=== PATIENT | female | born 1985 | race Caucasian/White ===

== ENCOUNTER 2018-10-02 05:43 | Emergency (ER) | payer OTHER ==
[2018-10-02 05:53] VITALS: BP 109/68
[2018-10-02 06:20] LABS: CLARITY,URINE SL. CLOUDY (CLEAR)
[2018-10-02 06:21] LABS: BILIRUBIN,URINE NEGATIVE (NEGATIVE); ICTOTEST,URINE NEGATIVE
[2018-10-02 06:22] LABS: SQUAMOUS EPITHELIAL CELL,UR FEW Squamous (<= Few)
[2018-10-02 06:23] LABS: BACTERIA,URINE Rare /HPF (None Seen)
--- NOTE | 2018-10-02 06:37 | ED Physician Documentation ---
PD HPI FEMALE - Stated complaint Stated Complaint: FEMALE - Chief complaint Chief Complaint: Abd Pain - History obtained from History obtained from: Patient - History of Present Illness Timing - onset: How many days ago (2) Timing - details: Gradual onset Associated symptoms: Dysuria, Urinary frequency. 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 - Past Surgical History Past Surgical History: No - Present Medications Home Medications: Ambulatory Orders Medication Instructions Recorded Confirmed Nitrofurantoin Monohyd/M-Cryst 100 mg PO BID #10 capsule 10/02/18 [Macrobid 100 mg Capsule] - Allergies Allergies/Adverse Reactions: Allergies Allergy/AdvReac Type Severity Reaction Status Date / Time No Known Drug Allergies Allergy Verified 10/02/18 05:52 - Social History Does the pt smoke?: No Smoking Status: Never smoker Does the pt drink ETOH?: Yes Does the pt have substance abuse?: No - Immunizations Immunizations are current?: Yes - POLST Patient has POLST: No PD ED PE NORMAL - Vitals Vital signs reviewed: Yes - General General: Alert and oriented X 3, No acute distress, Well developed/nourished - Abdomen Abdomen: Soft, Non tender - Back Back: No CVA TTP Results - Vitals Vitals: Vital Signs - 24 hr 10/02/18 05:51 Temperature 36.8 C Heart Rate 72 Respiratory 16 Rate Blood Pressure 109/68 O2 Saturation 100 Oxygen O2 Source Room air - Labs Labs: Laboratory Tests 10/02/18 05:40 Urine Color RED/BLOODY Urine Clarity SL. CLOUDY Urine pH 5.0 Ur Specific [place] 1.025 Urine Protein Urine Glucose (UA) Urine Ketones Urine Occult Blood Urine Nitrite Urine Bilirubin NEGATIVE Urine Urobilinogen Ur Leukocyte Esterase Urine RBC 6-10 H Urine WBC >25 H Ur Squamous Epith Cells FEW Squamous Urine Bacteria Rare Ur Microscopic Review INDICATED Urine Culture Comments INDICATED PD MEDICAL DECISION MAKING - ED course Complexity details: reviewed results, considered differential, d/w patient Departure - Departure Disposition: 01 Home, Self Care Clinical Impression: Urinary tract infection Qualifiers: Urinary tract infection type: acute cystitis Hematuria presence: without hematuria Qualified Code(s): N30.00 - Acute cystitis without hematuria Condition: Good Instructions: ED UTI Cystitis Female Follow-Up: MILADYS DICKINSON MD [Primary Care Provider] - Prescriptions: Nitrofurantoin Monohyd/M-Cryst [Macrobid 100 mg Capsule] 100 mg PO BID #10 capsule Discharge Date/Time: 10/02/18 07:15
[2018-10-02] MEDS ORDERED: NITROFURANTOIN MACRO 100 MG CAPSULE PO STA (07:00)
== END 2018-10-02 07:15 | disposition home or self-care (01) ==
LOC: ED 05:43
DX: N30.00 Acute cystitis without hematuria (principal); Z87.440 Personal history of urinary (tract) infections
CPT/HCPCS: 81001; 87086; 87181; 99283; A9270; 81003

== ENCOUNTER 2020-12-01 14:01 | Emergency (ER) | payer OTHER ==
[2020-12-01 14:10] VITALS: BP 105/60
--- NOTE | 2020-12-01 14:28 | ED Physician Documentation ---
PD HPI FEMALE - Stated complaint Stated Complaint: FEMALE - Chief complaint Chief Complaint: UTI - History obtained from History obtained from: Patient - History of Present Illness Timing - onset: Last night Timing - duration: Hours Timing - details: Gradual onset, Still present Associated symptoms: Dysuria, Urinary frequency Contributing factors: No: Similar symptoms before: Diagnosis (UTI) Recently seen: Not recently seen - Additional information Additional information: Previously well 35-year-old female with a prior history of urinary tract infection has developed symptoms of same beginning last night. She has developed some urinary urgency frequency dysuria and foul-smelling urine. She did take some Azo last night and comes into the emergency department this morning for evaluation. She denies any fever she has had some slight nausea this morning this is now resolved. She has had urinary tract infection 1-2 times per year over the last 3 years. Review of Systems Constitutional: denies: Fever, Chills, Myalgias, Fatigue Nose: denies: Congestion Respiratory: denies: Dyspnea, Cough GI: reports: Nausea. 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 : None HEENT: None Psych: None Musculoskeletal: Other Derm: None - Past Surgical History Past Surgical History: No - Present Medications Home Medications: Ambulatory Orders Medication Instructions Recorded Confirmed Dextroamphetamine/Amphetamine 05/08/19 [Adderall Xr 15 mg Capsule] Nitrofurantoin Monohyd/M-Cryst 100 mg PO BID #10 capsule 05/08/19 [Macrobid 100 mg Capsule] Phenazopyridine HCl [Pyridium] 200 mg PO TID PRN #6 tablet 05/08/19 Sulfamethox/Trimeth 800/160 1 each PO BID #10 tab 12/01/20 [Bactrim Ds] - Allergies Allergies/Adverse Reactions: Allergies Allergy/AdvReac Type Severity Reaction Status Date / Time No Known Drug Allergies Allergy Verified 12/01/20 14:06 - Social History Does the pt smoke?: No Smoking Status: Never smoker Does the pt drink ETOH?: No Does the pt have substance abuse?: No - Immunizations Immunizations are current?: Yes - POLST Patient has POLST: No PD ED PE NORMAL - Vitals Vital signs reviewed: Yes (normal ) - General General: Alert and oriented X 3, No acute distress, Well developed/nourished - HEENT HEENT: Atraumatic, PERRL, EOMI - Respiratory Respiratory: No respiratory distress - Back Back: No CVA TTP, No spinal TTP - Derm Derm: Normal color, Warm and dry, No rash - Extremities Extremities: No deformity, No edema - Neuro Neuro: Alert and oriented X 3, chemical pathologist 2-12 intact, No motor deficit, No sensory deficit, Normal speech Eye Opening: Spontaneous Motor: Obeys Commands Verbal: Oriented GCS Score: 15 - Psych Psych: Normal mood, Normal affect Results - Vitals Vitals: Vital Signs - 24 hr 12/01/20 14:06 Temperature 36.7 C Heart Rate 83 Respiratory 16 Rate Blood Pressure 105/60 O2 Saturation 100 Oxygen O2 Source Room air - Labs Labs: Laboratory Tests 12/01/20 14:20 Urine Color YELLOW Urine Clarity CLEAR Urine pH 6.0 Ur Specific [place] 1.010 Urine Protein NEGATIVE Urine Glucose (UA) NEGATIVE Urine Ketones NEGATIVE Urine Occult Blood SMALL H Urine Nitrite NEGATIVE Urine Bilirubin NEGATIVE Urine Urobilinogen 0.2 (NORMAL) Ur Leukocyte Esterase TRACE H Urine RBC 0-5 Urine WBC 11-25 H Ur Squamous Epith Cells FEW Squamous Urine Bacteria Rare Ur Microscopic Review INDICATED Urine Culture Comments INDICATED Urine HCG, Qual NEGATIVE PD MEDICAL DECISION MAKING - ED course Complexity details: reviewed results, re-evaluated patient, considered differential, d/w patient ED course: young woman is symptomatic with UTI and treatment is offered. Departure - Departure Disposition: 01 Home, Self Care Clinical Impression: Urinary tract infection Qualifiers: Urinary tract infection type: acute cystitis Hematuria presence: without hematuria Qualified Code(s): N30.00 - Acute cystitis without hematuria Instructions: ED UTI Cystitis Female [facility]-Up: [facility] [Provider Group] Prescriptions: Sulfamethox/Trimeth 800/160 [Bactrim Ds] 1 each PO BID #10 tab Discharge Date/Time: 12/01/20 15:01
[2020-12-01 14:33] LABS: BILIRUBIN,URINE NEGATIVE (NEGATIVE); GLUCOSE, URINE (UA) NEGATIVE (NEGATIVE); KETONES,URINE (UA) NEGATIVE (NEGATIVE); LEUKOCYTE ESTERASE, URINE TRACE (NEGATIVE); NITRITE,URINE NEGATIVE (NEGATIVE); OCCULT BLOOD,URINE SMALL (NEGATIVE); PROTEIN,URINE NEGATIVE (NEGATIVE); UROBILINOGEN,URINE 0.2 (NORMAL) E.U./dL (NORMAL)
[2020-12-01 14:35] LABS: CLARITY,URINE CLEAR (CLEAR); HCG UR QUAL NEGATIVE
[2020-12-01 14:52] LABS: BACTERIA,URINE Rare /HPF (None Seen); RBC,URINE 0-5 /HPF (0-5); SQUAMOUS EPITHELIAL CELL,UR FEW Squamous (<= Few)
== END 2020-12-01 15:01 | disposition home or self-care (01) ==
LOC: ED 14:01
DX: N30.00 Acute cystitis without hematuria (principal)
CPT/HCPCS: 81001; 81003; 81025; 87086; 99283; 99284

== ENCOUNTER 2021-11-08 17:22 | Emergency (ER) | payer OTHER ==
[2021-11-08 17:45] VITALS: BP 119/76
[2021-11-08 18:03] LABS: BILIRUBIN,URINE NEGATIVE (NEGATIVE); GLUCOSE, URINE (UA) NEGATIVE (NEGATIVE); KETONES,URINE (UA) TRACE mg/dL (NEGATIVE); LEUKOCYTE ESTERASE, URINE TRACE (NEGATIVE); NITRITE,URINE NEGATIVE (NEGATIVE); OCCULT BLOOD,URINE NEGATIVE (NEGATIVE); PH,URINE 5.5 PH (5.0-7.5); PROTEIN,URINE NEGATIVE (NEGATIVE); UROBILINOGEN,URINE 0.2 (NORMAL) E.U./dL (NORMAL)
[2021-11-08 18:20] LABS: BACTERIA,URINE Moderate /HPF (None Seen); CLARITY,URINE CLEAR (CLEAR); HCG UR QUAL NEGATIVE; RBC,URINE 0-5 /HPF (0-5); SQUAMOUS EPITHELIAL CELL,UR FEW Squamous (<= Few)
[2021-11-08] MEDS ORDERED: NITROFURANTOIN MACRO 100 MG CAPSULE PO STA (18:24)
--- NOTE | 2021-11-08 18:25 | ED Physician Documentation ---
PD HPI FEMALE - Stated complaint Stated Complaint: FEMALE - Chief complaint Chief Complaint: UTI - History obtained from History obtained from: Patient (hAS ABOUT 3 utiS/YR. 3 days of urinary frequency and dysuria without flank pain, fevers, or nausea.) Review of Systems Constitutional: denies: Fever, Chills : reports: Dysuria, Frequency. 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 : None HEENT: None Psych: None Musculoskeletal: Other Derm: None - Past Surgical History Past Surgical History: No - Present Medications Home Medications: Ambulatory Orders Medication Instructions Recorded Confirmed Dextroamphetamine/Amphetamine 05/08/19 [Adderall Xr 15 mg Capsule] Nitrofurantoin Monohyd/M-Cryst 100 mg PO BID #10 capsule 05/08/19 [Macrobid 100 mg Capsule] Phenazopyridine HCl [Pyridium] 200 mg PO TID PRN #6 tablet 05/08/19 Sulfamethox/Trimeth 800/160 1 each PO BID #10 tab 12/01/20 [Bactrim Ds] Nitrofurantoin [Macrobid] 1 cap PO BID #10 cap 11/08/21 - Allergies Allergies/Adverse Reactions: Allergies Allergy/AdvReac Type Severity Reaction Status Date / Time No Known Drug Allergies Allergy Verified 11/08/21 17:47 - Social History Does the pt smoke?: No Smoking Status: Never smoker Does the pt drink ETOH?: No Does the pt have substance abuse?: No - Immunizations Immunizations are current?: Yes - POLST Patient has POLST: No PD ED PE NORMAL - Vitals Vital signs reviewed: Yes - General General: Alert and oriented X 3, No acute distress - Abdomen Abdomen: Normal bowel sounds, Soft, Non tender - Back Back: No CVA TTP - Neuro Neuro: Alert and oriented X 3, Normal speech Results - Vitals Vitals: Vital Signs - 24 hr 11/08/21 17:43 Temperature 36.4 C L Heart Rate 92 Respiratory 16 Rate Blood Pressure 119/76 O2 Saturation 100 Oxygen O2 Source Room air - Labs Labs: Laboratory Tests 11/08/21 11/08/21 17:55 17:55 Urine Color LIGHT YELLOW Urine Clarity CLEAR Urine pH 5.5 Ur Specific [place] 1.010 Urine Protein NEGATIVE Urine Glucose (UA) NEGATIVE Urine Ketones TRACE Urine Occult Blood NEGATIVE Urine Nitrite NEGATIVE Urine Bilirubin NEGATIVE Urine Urobilinogen 0.2 (NORMAL) Ur Leukocyte Esterase TRACE H Urine RBC 0-5 Urine WBC 6-10 H Ur Squamous Epith Cells FEW Squamous Urine Bacteria Moderate H Ur Microscopic Review INDICATED Urine Culture Comments INDICATED Urine HCG, Qual NEGATIVE Departure - Departure Disposition: Home, Self Care Clinical Impression: Cystitis Condition: Good Record reviewed to determine appropriate education?: Yes Instructions: ED UTI Cystitis Female Prescriptions: Nitrofurantoin [Macrobid] 1 cap PO BID #10 cap Comments: I sent your prescription to [facility] in [place]. We will culture your urine, the results should be done in 48-72 hours. If an antibiotic change is necessary we will call you. Return if worse in the meantime, especially if you develop increasing flank pain, fevers, or cannot keep down the medication.
== END 2021-11-08 18:28 | disposition home or self-care (01) ==
LOC: ED 17:22
DX: N30.90 Cystitis, unspecified without hematuria (principal)
CPT/HCPCS: 81001; 81025; 87086; 87181; 99282; 99283; A9270; 81003

== ENCOUNTER 2021-11-17 10:30 | Emergency (ER) | payer OTHER ==
[2021-11-17 10:42] VITALS: BP 108/74
[2021-11-17 11:08] LABS: BILIRUBIN,URINE NEGATIVE (NEGATIVE); GLUCOSE, URINE (UA) NEGATIVE (NEGATIVE); KETONES,URINE (UA) NEGATIVE (NEGATIVE); LEUKOCYTE ESTERASE, URINE LARGE (NEGATIVE); NITRITE,URINE NEGATIVE (NEGATIVE); OCCULT BLOOD,URINE LARGE (NEGATIVE); PH,URINE 5.5 PH (5.0-7.5); PROTEIN,URINE 30 mg/dL (NEGATIVE); UROBILINOGEN,URINE 0.2 (NORMAL) E.U./dL (NORMAL)
[2021-11-17 11:09] LABS: CLARITY,URINE HAZY (CLEAR)
[2021-11-17 11:12] LABS: HCG UR QUAL NEGATIVE
[2021-11-17 11:29] LABS: RBC,URINE TNTC /HPF (0-5); SQUAMOUS EPITHELIAL CELL,UR FEW Squamous (<= Few); WBC,URINE >25 /HPF (0-5)
[2021-11-17 11:30] LABS: BACTERIA,URINE Few /HPF (None Seen)
[2021-11-17] MEDS ORDERED: SULFAMETH/TRIMETH DS 800/160 MG TABLET PO STA (11:35)
--- NOTE | 2021-11-17 11:35 | ED Physician Documentation ---
History of Present Illness - Stated complaint Stated Complaint: FEMALE - Chief complaint Chief Complaint: UTI - History obtained from History obtained from: Patient - Additonal information Additional information: Patient comes emergency department chief complaint of recurrence of dysuria and urinary frequency after being treated for urinary tract infection a couple of weeks ago. Patient states that during that course of antibiotics, she missed 1 dose of her antibiotics but took all the rest. She is not sure how long she was on the antibiotics but she thinks it was 3 to 5 days. Patient denies any fevers or chills. No back pain. She states her symptoms began to recur yesterday. No other complaints at this time. Review of Systems Ten Systems: 10 systems reviewed and negative Constitutional: reports: Reviewed and negative Eyes: reports: Reviewed and negative Ears: reports: Reviewed and negative Nose: reports: Reviewed and negative Throat: reports: Reviewed and negative Cardiac: reports: Reviewed and negative Respiratory: reports: Reviewed and negative GI: reports: Reviewed and negative : reports: Dysuria, Frequency Skin: reports: Reviewed and negative Musculoskeletal: reports: Reviewed and negative Neurologic: reports: Reviewed and negative Psychiatric: reports: Reviewed and negative Endocrine: reports: Reviewed and negative Immunocompromised: reports: Reviewed and negative PD PAST MEDICAL HISTORY - Past Medical History Past Medical History: Yes Cardiovascular: None Respiratory: None Neuro: None Endocrine/Autoimmune: None GI: None 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 : None HEENT: None Psych: None Musculoskeletal: Other Derm: None - Past Surgical History Past Surgical History: No - Present Medications Home Medications: Ambulatory Orders Medication Instructions Recorded Confirmed Dextroamphetamine/Amphetamine 05/08/19 [Adderall Xr 15 mg Capsule] Nitrofurantoin Monohyd/M-Cryst 100 mg PO BID #10 capsule 05/08/19 [Macrobid 100 mg Capsule] Phenazopyridine HCl [Pyridium] 200 mg PO TID PRN #6 tablet 05/08/19 Sulfamethox/Trimeth 800/160 1 each PO BID #10 tab 12/01/20 [Bactrim Ds] Nitrofurantoin [Macrobid] 1 cap PO BID #10 cap 11/08/21 Sulfamethox/Trimeth 800/160 1 each PO BID #14 tablet 11/17/21 [Bactrim Ds 800/160] - Allergies Allergies/Adverse Reactions: Allergies Allergy/AdvReac Type Severity Reaction Status Date / Time No Known Drug Allergies Allergy Verified 11/17/21 10:42 - Social History Does the pt smoke?: No Smoking Status: Never smoker Does the pt drink ETOH?: No Does the pt have substance abuse?: No - Immunizations Immunizations are current?: Yes - POLST Patient has POLST: No PD ED PE NORMAL - Vitals Vital signs reviewed: Yes - General General: Alert and oriented X 3, No acute distress, Well developed/nourished - HEENT HEENT: Atraumatic, PERRL, EOMI, Moist mucous membranes - Neck Neck: Supple, no meningeal sign - Cardiac Cardiac: RRR, No murmur, Strong equal pulses - Respiratory Respiratory: No respiratory distress, Clear bilaterally - Abdomen Abdomen: Soft, Non tender, Non distended - Back Back: No CVA TTP - Derm Derm: Normal color, Warm and dry, No rash - Extremities Extremities: No deformity, No edema - Neuro Neuro: Alert and oriented X 3 - Psych Psych: Normal mood, Normal affect Results - Vitals Vitals: Vital Signs - 24 hr 11/17/21 10:35 Temperature 36.6 C Heart Rate 96 Respiratory 15 Rate Blood Pressure 108/74 O2 Saturation 99 Oxygen O2 Source Room air - Labs Labs: Laboratory Tests 11/17/21 11:00 Urine Color YELLOW Urine Clarity HAZY Urine pH 5.5 Ur Specific [place] 1.025 Urine Protein 30 H Urine Glucose (UA) NEGATIVE Urine Ketones NEGATIVE Urine Occult Blood LARGE H Urine Nitrite NEGATIVE Urine Bilirubin NEGATIVE Urine Urobilinogen 0.2 (NORMAL) Ur Leukocyte Esterase LARGE H Urine RBC TNTC H Urine WBC >25 H Ur Squamous Epith Cells FEW Squamous Urine Bacteria Few Ur Microscopic Review INDICATED Urine Culture Comments INDICATED Urine HCG, Qual NEGATIVE PD MEDICAL DECISION MAKING - ED course Complexity details: reviewed results, re-evaluated patient, considered differential, d/w patient ED course: The patient's urinalysis was positive for infection. She was started on antibiotics here in the emergency department. I will put her on a weeklong course this time, and we have discussed that patient can speak with her primary doctor about following up with urology regarding her recurrent UTIs. We have discussed the usual indications for return. Departure - Departure Disposition: 01 Home, Self Care Clinical Impression: Urinary tract infection Qualifiers: Urinary tract infection type: acute cystitis Hematuria presence: with hematuria Qualified Code(s): N30.01 - Acute cystitis with hematuria Condition: Stable Instructions: ED UTI Cystitis Female Prescriptions: Sulfamethox/Trimeth 800/160 [Bactrim Ds 800/160] 1 each PO BID #14 tablet Comments: Your prescription has been electronically transmitted to [facility] pharmacy in [place]. Please take all of your antibiotics as directed until gone. Please speak with your primary doctor about whether you should have a referral to urology for your recurrent urinary tract infections.
== END 2021-11-17 12:30 | disposition home or self-care (01) ==
LOC: ED 10:30
DX: N30.01 Acute cystitis with hematuria (principal)
CPT/HCPCS: 81001; 81025; 87086; 99283; A9270; 81003

== ENCOUNTER 2022-03-31 11:47 | Emergency (ER) | payer OTHER ==
[2022-03-31 12:06] VITALS: BP 104/72
[2022-03-31 12:24] LABS: BILIRUBIN,URINE NEGATIVE (NEGATIVE); GLUCOSE, URINE (UA) NEGATIVE (NEGATIVE); KETONES,URINE (UA) NEGATIVE (NEGATIVE); LEUKOCYTE ESTERASE, URINE LARGE (NEGATIVE); NITRITE,URINE NEGATIVE (NEGATIVE); OCCULT BLOOD,URINE SMALL (NEGATIVE); PROTEIN,URINE NEGATIVE (NEGATIVE); UROBILINOGEN,URINE 0.2 (NORMAL) E.U./dL (NORMAL)
[2022-03-31 12:25] LABS: CLARITY,URINE SL. CLOUDY (CLEAR); HCG UR QUAL NEGATIVE
--- NOTE | 2022-03-31 12:38 | ED Physician Documentation ---
PD HPI FEMALE - Stated complaint Stated Complaint: UTI - Chief complaint Chief Complaint: UTI - History obtained from History obtained from: Patient - History of Present Illness Timing - onset: How many days ago (2) Timing - duration: Days (2) Timing - details: Gradual onset Pain level max: 0 Pain level max: 0 Associated symptoms: Dysuria, Urinary frequency. 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 : None HEENT: None Psych: None Musculoskeletal: Other Derm: None - Past Surgical History Past Surgical History: No - Present Medications Home Medications: Ambulatory Orders Medication Instructions Recorded Confirmed Dextroamphetamine/Amphetamine 15 mg PO DAILY 05/08/19 03/31/22 [Adderall Xr 15 mg Capsule] Nitrofurantoin [Macrobid] 100 mg PO BID #10 cap 03/31/22 Phenazopyridine HCl [Pyridium] 200 mg PO TID PRN #6 tablet 03/31/22 - Allergies Allergies/Adverse Reactions: Allergies Allergy/AdvReac Type Severity Reaction Status Date / Time No Known Drug Allergies Allergy Verified 03/31/22 12:06 - Social History Does the pt smoke?: No Smoking Status: Never smoker Does the pt drink ETOH?: No Does the pt have substance abuse?: No - Immunizations Immunizations are current?: Yes - POLST Patient has POLST: No PD ED PE NORMAL - Vitals Vital signs reviewed: Yes - General General: Alert and oriented X 3, No acute distress - HEENT HEENT: Moist mucous membranes - Neck Neck: Supple, no meningeal sign - Cardiac Cardiac: RRR - Respiratory Respiratory: No respiratory distress, Clear bilaterally - Abdomen Abdomen: Soft, Non tender, Non distended - Back Back: No CVA TTP - Derm Derm: Warm and dry - Neuro Neuro: Alert and oriented X 3 - Psych Psych: Normal mood, Normal affect Results - Vitals Vitals: Vital Signs - 24 hr 03/31/22 12:03 Temperature 36.6 C Heart Rate 88 Respiratory 18 Rate Blood Pressure 104/72 O2 Saturation 99 Oxygen O2 Source Room air - Labs Labs: Laboratory Tests 03/31/22 12:10 Urine Color YELLOW Urine Clarity SL. CLOUDY Urine pH 6.0 Ur Specific [place] 1.010 Urine Protein NEGATIVE Urine Glucose (UA) NEGATIVE Urine Ketones NEGATIVE Urine Occult Blood SMALL H Urine Nitrite NEGATIVE Urine Bilirubin NEGATIVE Urine Urobilinogen 0.2 (NORMAL) Ur Leukocyte Esterase LARGE H Urine RBC 0-5 Urine WBC >25 H Urine WBC Clumps PRESENT Ur Squamous Epith Cells FEW Squamous Urine Bacteria Few Ur Microscopic Review INDICATED Urine Culture Comments INDICATED Urine HCG, Qual NEGATIVE PD MEDICAL DECISION MAKING - ED course Complexity details: reviewed results, considered differential, d/w patient ED course: Patient with a UTI. Will place on antibiotics for home. We will have her follow-up with her doctor for further care. No evidence of pyelonephritis. No evidence of sepsis. Patient counseled regarding signs and symptoms for which I believe and urgent re-evaluation would be necessary. Patient with good unde rstanding of and agreement to plan and is comfortable going home at this time This document was made in part using voice recognition software. While efforts are made to proofread this document, sound alike and grammatical errors may occur. Departure - Departure Disposition: 01 Home, Self Care Clinical Impression: Urinary tract infection Qualifiers: Urinary tract infection type: acute cystitis Hematuria presence: without hematuria Qualified Code(s): N30.00 - Acute cystitis without hematuria Condition: Good Instructions: ED UTI Cystitis Female Follow-Up: JACKELINE DUKE MD [Primary Care Provider] - As Needed Prescriptions: Nitrofurantoin [Macrobid] 100 mg PO BID #10 cap Phenazopyridine HCl [Pyridium] 200 mg PO TID PRN #6 tablet PRN Reason: dysuria Comments: Please follow-up with your doctor as needed for further care. Your prescriptions were sent to the [facility] pharmacy. Take all antibiotics until gone even if you are feeling better. Return if you worsen. Discharge Date/Time: 03/31/22 12:41
[2022-03-31 12:39] LABS: RBC,URINE 0-5 /HPF (0-5); WBC CLUMPS,URINE PRESENT; WBC,URINE >25 /HPF (0-5)
[2022-03-31 12:40] LABS: BACTERIA,URINE Few /HPF (None Seen); SQUAMOUS EPITHELIAL CELL,UR FEW Squamous (<= Few)
== END 2022-03-31 12:41 | disposition home or self-care (01) ==
LOC: ED 11:47
DX: N30.00 Acute cystitis without hematuria (principal)
CPT/HCPCS: 81001; 81003; 81025; 87077; 87086; 87181; 99283

== ENCOUNTER 2022-07-17 04:41 | Emergency (ER) | payer OTHER ==
[2022-07-17 05:06] LABS: BILIRUBIN,URINE NEGATIVE (NEGATIVE); GLUCOSE, URINE (UA) NEGATIVE (NEGATIVE); KETONES,URINE (UA) NEGATIVE (NEGATIVE); LEUKOCYTE ESTERASE, URINE LARGE (NEGATIVE); NITRITE,URINE NEGATIVE (NEGATIVE); OCCULT BLOOD,URINE SMALL (NEGATIVE); PROTEIN,URINE NEGATIVE (NEGATIVE); UROBILINOGEN,URINE 0.2 (NORMAL) E.U./dL (NORMAL)
[2022-07-17 05:10] LABS: CLARITY,URINE SL. CLOUDY (CLEAR); HCG UR QUAL NEGATIVE
[2022-07-17 05:14] LABS: BACTERIA,URINE Few /HPF (None Seen); RBC,URINE 0-5 /HPF (0-5); SQUAMOUS EPITHELIAL CELL,UR RARE Squamous (<= Few); WBC,URINE >25 /HPF (0-5)
--- NOTE | 2022-07-17 05:22 | ED Physician Documentation ---
PD HPI FEMALE - Stated complaint Stated Complaint: FEM - Chief complaint Chief Complaint: Abd Pain - History obtained from History obtained from: Patient - History of Present Illness Timing - onset: Last night Timing - details: Abrupt onset Pain level max: 3 (when urinating) Pain level max: 0 Associated symptoms: Dysuria, Urinary frequency. No: Fever, Hematuria Contributing factors: No: Similar symptoms before: Diagnosis (UTI) Recently seen: Not recently seen - Additional information Additional information: c/o burning dysuria, urinary frequency since last night. She says this is similar to previous (frequent) urinary tract infections she has had. 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 : Chronic bladder infection HEENT: None Psych: None Musculoskeletal: Other Derm: None - Past Surgical History Past Surgical History: No - Present Medications Home Medications: Ambulatory Orders Medication Instructions Recorded Confirmed Phenazopyridine [Pyridium] 200 mg PO TID 2 Days #12 tablet 07/17/22 Sulfamethox/Trimeth 800/160 1 each PO BID #10 tablet 07/17/22 [Bactrim Ds 800/160] - Allergies Allergies/Adverse Reactions: Allergies Allergy/AdvReac Type Severity Reaction Status Date / Time No Known Drug Allergies Allergy Verified 07/17/22 05:04 - Social History Does the pt smoke?: No Smoking Status: Never smoker Does the pt drink ETOH?: No Does the pt have substance abuse?: No - Immunizations Immunizations are current?: Yes - POLST Patient has POLST: No PD ED PE NORMAL - Vitals Vital signs reviewed: Yes - General General: Alert and oriented X 3, No acute distress, Well developed/nourished - Abdomen Abdomen: Soft, Non tender - Back Back: No CVA TTP Results - Vitals Vitals: Vital Signs - 24 hr 07/17/22 07/17/22 04:57 05:43 Temperature 36.4 C L 36.5 C Heart Rate 65 61 Respiratory 16 16 Rate Blood Pressure 106/64 110/65 O2 Saturation 100 99 Oxygen O2 Source Room air - Labs Labs: Laboratory Tests 07/17/22 07/17/22 04:45 04:45 Urine Color YELLOW Urine Clarity SL. CLOUDY Urine pH 6.0 Ur Specific [place] 1.020 Urine Protein NEGATIVE Urine Glucose (UA) NEGATIVE Urine Ketones NEGATIVE Urine Occult Blood SMALL H Urine Nitrite NEGATIVE Urine Bilirubin NEGATIVE Urine Urobilinogen 0.2 (NORMAL) Ur Leukocyte Esterase LARGE H Urine RBC 0-5 Urine WBC >25 H Ur Squamous Epith Cells RARE Squamous Urine Bacteria Few Ur Microscopic Review INDICATED Urine Culture Comments INDICATED Urine HCG, Qual NEGATIVE PD MEDICAL DECISION MAKING - ED course Complexity details: reviewed old records, reviewed results, considered differential, d/w patient ED course: Symptoms c/w UTI and UA result also strongly c/w UTI with >25 WBC/hpf. Urine HCG negative. She says the last time she had a UTI, the antibiotic prescribed was changed due to resistance and I do note that in March her urine culture was positive for klebsiella pneumonia resistant to macrobid and ampicillin but sensitive to all other antibiotics tested against. I do not see any information regarding what the antibiotic was changed to, but based on this previous culture, will rx bactrim and provide pyridium as well. Departure - Departure Disposition: 01 Home, Self Care Clinical Impression: Urinary tract infection Qualifiers: Urinary tract infection type: acute cystitis Hematuria presence: without hematuria Qualified Code(s): N30.00 - Acute cystitis without hematuria Condition: Good Instructions: ED UTI Cystitis Female Prescriptions: Sulfamethox/Trimeth 800/160 [Bactrim Ds 800/160] 1 each PO BID #10 tablet Phenazopyridine [Pyridium] 200 mg PO TID 2 Days #12 tablet Comments: Prescriptions for bactrim (sulfa/trimethoprim, antibiotic) and pyridium (helps with most UTI symptoms) have been electronically submitted to the [facility] in [place].
[2022-07-17] MEDS ORDERED: SULFAMETH/TRIMETH DS 800/160 MG TABLET PO STA (05:34)
[2022-07-17] MEDS ORDERED: PHENAZOPYRIDINE 100 MG TABLET PO STA (05:34)
[2022-07-17 05:45] VITALS: BP 110/65
== END 2022-07-17 05:43 | disposition home or self-care (01) ==
LOC: ED 04:41
DX: N30.00 Acute cystitis without hematuria (principal)
CPT/HCPCS: 81001; 81025; 87086; 87181; 99282; 99283; A9270; 81003

== ENCOUNTER 2023-01-08 18:05 | Emergency (ER) | payer OTHER ==
[2023-01-08 18:11] VITALS: BP 116/68
[2023-01-08 18:24] LABS: BILIRUBIN,URINE NEGATIVE (NEGATIVE); GLUCOSE, URINE (UA) NEGATIVE (NEGATIVE); KETONES,URINE (UA) NEGATIVE (NEGATIVE); LEUKOCYTE ESTERASE, URINE SMALL (NEGATIVE); NITRITE,URINE NEGATIVE (NEGATIVE); OCCULT BLOOD,URINE TRACE-INTA (NEGATIVE); PROTEIN,URINE NEGATIVE (NEGATIVE); UROBILINOGEN,URINE 0.2 (NORMAL) E.U./dL (NORMAL)
[2023-01-08 18:25] LABS: HCG UR QUAL NEGATIVE
[2023-01-08 18:26] LABS: CLARITY,URINE HAZY (CLEAR)
[2023-01-08 18:30] LABS: BACTERIA,URINE Rare /HPF (None Seen); EPITHELIAL CELLS,UR RARE Transitional /HPF (<= Few); RBC,URINE 0-5 /HPF (0-5); SQUAMOUS EPITHELIAL CELL,UR RARE Squamous (<= Few); WBC,URINE >25 /HPF (0-5)
--- NOTE | 2023-01-08 18:49 | ED Physician Documentation ---
PD HPI FEMALE - Stated complaint Stated Complaint: FEMALE - Chief complaint Chief Complaint: UTI - History obtained from History obtained from: Patient - Additional information Additional information: 37-year-old female with a history of Frequent UTIs presents with dysuria since this morning. She has mild headache, no fever or chills, no back or flank pain, no nausea vomiting diarrhea, no vaginal discharge. No concern for STI. Feels similar to her prior UTIs per patient Review of Systems Constitutional: reports: Reviewed and negative Cardiac: reports: Reviewed and negative Respiratory: reports: Reviewed and negative GI: reports: Reviewed and negative : reports: Dysuria. 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 : Chronic bladder infection HEENT: None Psych: None Musculoskeletal: Other Derm: None - Past Surgical History Past Surgical History: No - Present Medications Home Medications: Ambulatory Orders Medication Instructions Recorded Confirmed Phenazopyridine [Pyridium] 200 mg PO TID 2 Days #12 tablet 07/17/22 Sulfamethox/Trimeth 800/160 1 each PO BID #10 tablet 07/17/22 [Bactrim Ds 800/160] Phenazopyridine HCl [Pyridium] 200 mg PO TID PRN #6 tablet 01/08/23 cephALEXin [Keflex] 500 mg PO Q6H #14 cap 01/08/23 - Allergies Allergies/Adverse Reactions: Allergies Allergy/AdvReac Type Severity Reaction Status Date / Time No Known Drug Allergies Allergy Verified 01/08/23 18:08 - Social History Does the pt smoke?: No Smoking Status: Never smoker Does the pt drink ETOH?: No Does the pt have substance abuse?: No - Immunizations Immunizations are current?: Yes - POLST Patient has POLST: No PD ED PE NORMAL - Vitals Vital signs reviewed: Yes - General General: Alert and oriented X 3, No acute distress, Well developed/nourished - Respiratory Respiratory: No respiratory distress, Clear bilaterally - Abdomen Abdomen: Normal bowel sounds, Soft, Non tender, Non distended - Back Back: No CVA TTP - Derm Derm: Normal color, Warm and dry Results - Vitals Vitals: Vital Signs - 24 hr 01/08/23 18:08 Temperature 36.5 C Heart Rate 85 Respiratory 16 Rate Blood Pressure 116/68 O2 Saturation 100 Oxygen O2 Source Room air - Labs Labs: Laboratory Tests 01/08/23 18:16 Urine Color YELLOW Urine Clarity HAZY Urine pH 6.0 Ur Specific [place] 1.025 Urine Protein NEGATIVE Urine Glucose (UA) NEGATIVE Urine Ketones NEGATIVE Urine Occult Blood TRACE-INTA Urine Nitrite NEGATIVE Urine Bilirubin NEGATIVE Urine Urobilinogen 0.2 (NORMAL) Ur Leukocyte Esterase SMALL H Urine RBC 0-5 Urine WBC >25 H Ur Epithelial Cells RARE Transitional Ur Squamous Epith Cells RARE Squamous Urine Bacteria Rare Ur Microscopic Review INDICATED Urine Culture Comments INDICATED Urine HCG, Qual NEGATIVE PD Medical Decision Making - ED course Complexity details: considered differential, d/w patient ED course: 37-year-old female presents with dysuria since this morning. She has a history of frequent UTIs and this feels similar to her. She is nontoxic-appearing stable vital signs, no signs of pyonephritis on physical exam. Her urinalysis is suggestive of infection therefore I will treat with Keflex twice a day for 5 days. The patient was also given Pyridium, advised to drink plenty of fluids, take Tylenol as needed for pain. Return precautions viewed in detail with this patient. Departure - Departure Disposition: 01 Home, Self Care Clinical Impression: Urinary tract infection Qualifiers: Urinary tract infection type: acute cystitis Hematuria presence: without hematuria Qualified Code(s): N30.00 - Acute cystitis without hematuria Condition: Good Instructions: ED UTI Cystitis Female Prescriptions: cephALEXin [Keflex] 500 mg PO Q6H #14 cap Phenazopyridine HCl [Pyridium] 200 mg PO TID PRN #6 tablet PRN Reason: dysuria Comments: You presented with dysuria or painful urination. Your urinalysis is suggestive of infection and we will send this for culture. Have started you on antibiotics and you should try to drink plenty of water. Have also given you a medication called Pyridium that can help with the discomfort, you can also use Tylenol or ibuprofen. If you develop a fever, flank pain, vomiting or other new concerns, return to the ER.
--- NOTE | 2023-01-09 08:41 | ED Physician Documentation ---
ED Addendum - Addendum Addendum: 01/09/23 08:41 The [facility] called for clarification on the prescription. It was written for Keflex 4 times daily for 7 days with a dispense of 14. I had them change that to dispense of 28.
== END 2023-01-08 19:01 | disposition home or self-care (01) ==
LOC: ED 18:05
DX: N30.00 Acute cystitis without hematuria (principal); Z87.440 Personal history of urinary (tract) infections
CPT/HCPCS: 81001; 81003; 81025; 87077; 87086; 87181; 99283